=== PATIENT | female | born 1960 | race Caucasian/White ===

== ENCOUNTER 2020-12-20 09:27 | Emergency (ER) | payer MEDICAID ==
[~2020-12-20] VITALS: Ht 162.6 cm; Wt 63.6 kg
[2020-12-20 09:42] VITALS: BP 145/87
== END 2020-12-20 11:11 | disposition home or self-care (01) ==
LOC: EMS 09:38
DX: T80.69XA Other serum reaction due to other serum, initial encounter (principal); X58.XXXA Exposure to other specified factors, initial encounter
CPT/HCPCS: 99283; Z7502